=== PATIENT | female | born 1990 | race Caucasian/White ===

== ENCOUNTER 2020-09-12 21:33 | Inpatient (IN) ==
[2020-09-12 21:25] LABS: Adenovirus Not Detected (Not Detect); Bordetella Pertussis Not Detected (Not Detect); Chlamydophila pneumoniae Not Detected (Not Detect); Coronavirus 229E Not Detected (Not Detect); Coronavirus HKU1 Not Detected (Not Detect); Coronavirus NL63 Not Detected (Not Detect); Coronavirus OC43 Not Detected (Not Detect); Human Metapneumovirus Not Detected (Not Detect); Human Rhinovirus/Enterovirus Not Detected (Not Detect); Influenza A Subtype 2009 H1 Not Detected (Not Detect); Influenza B Not Detected (Not Detect); Mycoplasma pneumoniae Not Detected (Not Detect); Parainfluenza Virus 1 Not Detected (Not Detect); Parainfluenza Virus 2 Not Detected (Not Detect); Parainfluenza Virus 3 Not Detected (Not Detect); Parainfluenza Virus 4 Not Detected (Not Detect); Respiratory Syncytial Virus Not Detected (Not Detect); SARS-CoV-2 DETECTED (Not Detect)
[2020-09-12] MEDS ORDERED: Ringers Solution, Lactated 1,000 ML ONE (22:17)
[2020-09-12] MEDS ORDERED: Penicillin G Potassium 5,000,000 UNIT in 0.9 % Sodium Chloride Mini Bag 100 ML IVPB ONE (22:21)
[2020-09-12] MEDS ORDERED: Ringers Solution, Lactated 1,000 ML IVC SCH (22:30)
[2020-09-12 22:59] LABS: Basophils % 0.2 %; Hematocrit 40.6 % (35.3-44.9); Hemoglobin 13.3 g/dL (11.5-15.4); Immature Granulocytes % 1.6 % (0-4); Lymphocytes # 1.7 K/mcL (0.6-4.6); Lymphocytes % 14.5 %; Mean Corpuscular HGB Conc 32.8 g/dL (31.6-35.5); Mean Corpuscular Hemoglobin 30.5 pg (28.0-33.3); Mean Corpuscular Volume 93.1 fL (83.0-100.0); Monocytes # 0.7 K/mcL (0.0-1.3); Monocytes % 5.9 %; Platelet Count 127 K/mcL (140-400); Red Blood Count 4.36 M/mcL (3.82-4.97); Red Cell Distribution Width 13.6 % (11.5-14.5); Segmented Neutrophils % 77.8 %; White Blood Count 11.5 K/mcL (4.3-11.1)
[2020-09-12] MEDS ORDERED: EPHEDrine 50 MG/ML VIAL IVP PRN (23:30)
[2020-09-12] MEDS ORDERED: *HR* FentaNYL (PF) 100 MCG/2 ML VIAL EP ONE (23:30)
[2020-09-12] MEDS ORDERED: Epidural Premix (fent/bupiv) 110 ML EP SCH (23:30)
[2020-09-12] MEDS ORDERED: Bupivacaine-MPF 0.25% 10 ML VIAL EP ONE (23:30)
[2020-09-12] MEDS ORDERED: *HR* FentaNYL (PF) 100 MCG/2 ML VIAL ONE (23:38)
[2020-09-12] MEDS ORDERED: Bupivacaine-MPF 0.25% 10 ML VIAL ONE (23:38)
[2020-09-12] MEDS ORDERED: Metoclopramide 10 MG/2 ML VIAL IVP PRN (23:38)
[2020-09-12] MEDS ORDERED: Famotidine 20 MG/2 ML VIAL IVP PRN (23:38)
[2020-09-12] MEDS ORDERED: Naloxone 0.4 MG/ML INJ IVP PRN (23:38)
[2020-09-13] MEDS ORDERED: Penicillin G Potassium 2,500,000 UNIT/105 ML MLS IVPB SCH
[2020-09-13 00:08] LABS: Amphetamine Screen,Urine Negative ng/mL (Cutoff=1000); Barbiturate Screen,Urine Negative ng/mL (Cutoff=200); Benzodiazepines Screen,Urine Negative ng/mL (Cutoff=200); Cannabinoid Screen,Urine Negative ng/mL (Cutoff = 50); Cocaine Screen,Urine Negative ng/mL (Cutoff= 300); Opiate Screen,Urine Negative ng/mL (Cutoff=300); Phencyclidine Screen,Urine Negative ng/mL (Cutoff=25)
[2020-09-13] MEDS ORDERED: Oxytocin 20 units/ LR 1000 mL 20 UNIT/1,000 ML BAG IVC ONE ×3 (02:47→06:57)
[2020-09-13] MEDS ORDERED: Benzocaine/Menthol 56 GM AEROSOL SPRAY TP PRN (06:57)
[2020-09-13] MEDS ORDERED: Acetaminophen 325 MG TABLET PO PRN (06:57)
[2020-09-13] MEDS ORDERED: Rho Immune Globulin 1,500 UNIT SYRINGE IM PRN (06:57)
[2020-09-13] MEDS ORDERED: Lanolin 7 G OINT...G. TP PRN (06:57)
[2020-09-13] MEDS ORDERED: Measles/Mumps/Rubella Vacc 0.5 ML VIAL SQ PRN (06:57)
[2020-09-13] MEDS ORDERED: Oxytocin 20 units/ LR 1000 mL 20 UNIT/1,000 ML BAG IVC SCH (06:57)
[2020-09-13] MEDS: Ibuprofen 600 MG TABLET PO PRN ×2 (08:41→18:20)
[2020-09-13] MEDS: Aspirin Enteric Coated 81 MG Tablet PO SCH (08:41)
[2020-09-13] MEDS: Prenatal Vit/FA 1 EACH TABLET PO SCH (08:42)
[2020-09-13] MEDS: Loratadine 10 MG TABLET PO SCH (08:42)
[2020-09-13] MEDS: Budesonide/Formoterol 160/4.5 1 PUFF INH IH SCH ×2 (12:30→20:11)
[2020-09-14] MEDS: Ibuprofen 600 MG TABLET PO PRN (04:40)
[2020-09-14 04:44] VITALS: BP 116/79
[2020-09-14] MEDS: Aspirin Enteric Coated 81 MG Tablet PO SCH (07:52)
[2020-09-14] MEDS: Prenatal Vit/FA 1 EACH TABLET PO SCH (07:53)
[2020-09-14] MEDS: Loratadine 10 MG TABLET PO SCH (07:53)
[2020-09-14 09:14] LABS: Basophils % 0.2 %; Hematocrit 29.8 % (35.3-44.9); Hemoglobin 9.6 g/dL (11.5-15.4); Immature Granulocytes % 1.9 % (0-4); Lymphocytes # 2.1 K/mcL (0.6-4.6); Lymphocytes % 16.5 %; Mean Corpuscular HGB Conc 32.2 g/dL (31.6-35.5); Mean Corpuscular Hemoglobin 30.3 pg (28.0-33.3); Mean Platelet Volume 11.7 fL (9.4-12.4); Monocytes # 0.6 K/mcL (0.0-1.3); Monocytes % 4.6 %; Neutrophils # 9.5 K/mcL (1.6-8.9); Nucleated Red Blood Cells 0.2 /100 WBC (0); Platelet Count 117 K/mcL (140-400); Red Blood Count 3.17 M/mcL (3.82-4.97); Segmented Neutrophils % 76.8 %; White Blood Count 12.4 K/mcL (4.3-11.1)
== END 2020-09-14 13:45 | disposition home or self-care (01) | DRG 805 ==
LOC: 1NENUOBS → 1NENULAB 21:33 → 1NENUOBS 09-13 06:58
PROVIDERS: ADMIT Obstetrics & Gynecology; ATTEND Obstetrics & Gynecology